=== PATIENT | female | born 1975 | race Caucasian/White ===

== ENCOUNTER 2016-05-09 11:37 | Emergency (ER) | payer BC, OTHER ==
[2016-05-09 11:46] VITALS: BP 117/67
--- NOTE | 2016-05-09 13:55 | UC ---
Respiratory Complaint HPI - HPI Summary HPI Summary: Symptoms start about 5 days ago with feeling like she can't breath well. She has a chest tightness with deep inspiration with dry cough and feels flu like.yesterday she woke up with right neck pain that radiates down her right arm but no weakness in the arm or neck. . She has been taking Ibuprofen which does help. SHe was exposed to flu like illness at work. [ End ] - History of Current Complaint Chief Complaint: UCRespiratory Stated Complaint: SOB,CHEST TIGHTNESS,NECK & SHOULDER PAIN Time Seen by Provider: 05/09/16 13:41 Hx Obtained From: Patient Hx Last Menstrual Period: bleeds every day ?: No Onset/Duration: Gradual Onset Timing: Constant Severity Initially: Mild Severity Currently: Mild Character: Cough: Nonproductive Aggravating Factors: Nothing Alleviating Factors: OTC Meds Associated Signs And Symptoms: Positive: Chills, URI, Nasal Congestion, Sinus Discomfort. Negative: Dyspnea, Fever, Pleuritic Chest Pain, Wheezing, Edema, Hoarseness - Risk Factors Pulmonary Embolism Risk Factors: Negative Cardiac Risk Factors: Negative - Allergies/Home Medications Allergies/Adverse Reactions: Allergies Allergy/AdvReac Type Severity Reaction Status Date / Time No Known Allergies Allergy Verified 05/09/16 11:46 Home Medications: Home Medications Ibuprofen TAB* [Motrin TAB* 600 MG] 600 mg PO Q6H PRN 05/09/16 [History Confirmed 05/09/16] PMH/Surg Hx/FS Hx/Imm Hx Previously Healthy: Yes Endocrine History Of: Denies: Diabetes Cardiovascular History Of: Denies: Cardiac Disorders Respiratory History Of: Denies: COPD GI/ History Of: Denies: Gastroesophageal Reflux Neurological History Of: Denies: TIA Psychological History Of: Denies: Anxiety Cancer History Of: Denies: Lung Cancer - Surgical History Surgical History: None Surgery Procedure, Year, and Place: To have Total Hysterectomy for abnormal vaginal bleeding. Had EKG and pre op labs in the past 2 weeks. - Family History Known Family History: Positive: None - Social History Occupation: Employed Full-time Lives: With Family Alcohol Use: OCC Substance Use Type: None Smoking Status (MU): Light Every Day Tobacco Smoker - Immunization History Most Recent Tetanus Shot: 2013 Review of Systems Constitutional: Chills, Fatigue Skin: Negative Eyes: Negative ENT: Negative, Sore Throat, Nasal Discharge Respiratory: Cough Cardiovascular: Negative Gastrointestinal: Negative Genitourinary: Negative Motor: Negative Neurovascular: Negative Musculoskeletal: Negative, Myalgia Neurological: Negative Psychological: Negative All Other Systems Reviewed And Are Negative: Yes Physical Exam Triage Information Reviewed: Yes Appearance: Well-Appearing, No Pain Distress, Well-Nourished Vital Signs: Initial Vital Signs Temp 99.3 F 05/09/16 11:43 Pulse 88 05/09/16 11:43 Resp 16 05/09/16 11:43 BP 117/67 05/09/16 11:43 Pulse Ox 99 05/09/16 11:43 Vital Signs Reviewed: Yes Eye Exam: Normal ENT Exam: Normal Dental Exam: Normal Neck exam: Normal Neck: Positive: Supple, Nontender, No Lymphadenopathy Respiratory Exam: Normal Respiratory: Positive: Chest non-tender, Lungs clear, Normal breath sounds, No respiratory distress Cardiovascular Exam: Normal Cardiovascular: Positive: RRR, No Murmur, Pulses Normal Abdominal Exam: Normal Musculoskeletal Exam: Normal Musculoskeletal: Positive: Strength Intact, ROM Intact - Right UE FROM and strength 5/5 . Cap refill < 3 sec., Other: - left sternocleidomastoid muscle tenderness to palpation and some miminal discomfort with lateral movement. Neurological Exam: Normal Psychological Exam: Normal Skin Exam: Normal UC Diagnostic Evaluation - Laboratory O2 Sat by Pulse Oximetry: 99 Respiratory Course/Dx - Course Course Of Treatment: After discussion she is aware she it outside of the window to treat flu as her initial symptoms started 5 days ago. At this time treat consdervatively with OTC meds. Given instruction for neck exercises as she has muscle strain likely from sleeping incorrectly. SHe is aware and agreeable to plan and will return to office if she is not improved. - Differential Dx/Diagnosis Differential Diagnosis/HQI/PQRI: Asthma, Bronchitis, Lower Resp Infection Provider Diagnoses: URI Discharge - Discharge Plan Condition: Good Disposition: HOME Patient Education Materials: Upper Respiratory Infection (ED)
== END 2016-05-09 14:01 | disposition home or self-care (01) ==
LOC: UCCORT 11:37
DX: J06.9 Acute upper respiratory infection, unspecified (principal); F17.210 Nicotine dependence, cigarettes, uncomplicated
CPT/HCPCS: 99211; G0463

== ENCOUNTER 2016-06-04 06:28 | Observation (INO) | payer BC, OTHER ==
[~2016-06-04 06:28] MED LIST: Buffered Lidocaine 1% SYRIN* 3 ML/SYR SYRINGE INTRADERM ONE; Dexamethasone IV* 4 MG/ML 1 ML (4 MG) IV SLOW PU ONE; Dexamethasone IV* 4 MG/ML 1 ML (4 MG) ONE; Famotidine IV* 10 MG/ML 2 ML (20 mg) IV ONE; Famotidine IV* 10 MG/ML 2 ML (20 mg) ONE; Scopolamine 1.5 mg* PATCH ONE; Scopolamine 1.5 mg* PATCH TRANSDERM ONE; ceFOXitin 2 GM IVPREMIX* 2 GM/50 ML BAG ONE
[2016-06-04 06:47] LABS: Manual Entry Verification ROB0080; UR Preg Internal Control QC Line Present
[2016-06-04] MEDS ORDERED: Bupivacaine 0.25% SDV* 30 ML ONE (07:30)
[2016-06-04] MEDS ORDERED: Ketorolac INJ* 30 MG/ML 1 ML VIAL ONE (07:31)
[2016-06-04] MEDS ORDERED: Rocuronium* 10 MG/ML VIAL ONE (07:31)
[2016-06-04] MEDS ORDERED: Propofol* 10 MG/ML 20 ML BTL IV PUSH ONE (07:31)
[2016-06-04] MEDS ORDERED: Lidocaine 2% PF * 5 ML VIAL ONE (07:31)
[2016-06-04] MEDS ORDERED: Midazolam* 1 MG/ML 2 ML VIAL (2 MG) ONE (07:32)
[2016-06-04] MEDS ORDERED: fentaNYL* 50 MCG/ML 5 ML VIAL (250 MCG VIAL) ONE (07:32)
[2016-06-04] MEDS ORDERED: PROCHLORPERAZINE INJ 5 MG/ML 2 ML VIAL IV PRN (07:40)
[2016-06-04 07:41] LABS: Hematocrit 42 % (35-47); Hemoglobin 14.1 g/dl (12.0-16.0); Mean Corpuscular HGB Conc 34 g/dl (31-36); Mean Corpuscular Hemoglobin 31 pg (27-31); Mean Corpuscular Volume 91 fL (80-97); Mean Platelet Volume 10 um3 (7.4-10.4); Red Cell Distribution Width 13 % (10.5-15); White Blood Count 6.6 10^3/ul (3.5-10.8)
[2016-06-04] MEDS ORDERED: EPHEDrine (Pressors)* 50 MG/ML VIAL ONE (08:20)
[2016-06-04] MEDS ORDERED: Phenylephrine IV* 40 MCG/ML 10 ML SYRINGE ONE (08:21)
[2016-06-04] MEDS ORDERED: Ondansetron INJ* 2 MG/ML VIAL ONE (08:40)
[2016-06-04] MEDS ORDERED: Phenylephrine INJ* 10 MG/ML 1 ML VIAL (10 MG) ONE (09:00)
[2016-06-04] MEDS ORDERED: fentaNYL* 50 MCG/ML 2 ML VIAL (100 MCG VIAL) ONE ×3 (09:36→10:41)
[2016-06-04] MEDS ORDERED: Neostigmine Methylsulfate* 2 MG/2 ML SYRINGE ONE (09:55)
[2016-06-04] MEDS ORDERED: Glycopyrrolate IV* 0.2 MG/ML 1 ML VIAL ONE (09:55)
[2016-06-04] MEDS ORDERED: oxyCODONE/Acetamin 5/325 MG* TAB PO PRN (10:02)
[2016-06-04] MEDS ORDERED: Simethicone CHEW TAB* 80 MG PO PRN (10:02)
[2016-06-04] MEDS ORDERED: Ondansetron INJ* 2 MG/ML VIAL IV PRN (10:06)
[2016-06-04] MEDS: fentaNYL* 50 MCG/ML 2 ML VIAL (100 MCG VIAL) IV PRN ×4 (10:19→11:30)
[2016-06-04] MEDS ORDERED: oxyCODONE/Acetamin 5/325 MG* TAB ONE (10:41)
[2016-06-04] MEDS: oxyCODONE/Acetamin 5/325 MG* TAB PO PRN ×4 (10:42→23:29)
[2016-06-04] MEDS ORDERED: Labetalol IV* 5 MG/ML 20 ML VIAL ONE (11:18)
--- NOTE | 2016-06-04 13:35 | OP ---
OPERATIVE REPORT: DATE OF OPERATION: 06/04/16 DATE OF : 77 SURGEON: Jose Vaughn MD RADIATION ONCOLOGY MANAGER: Dr. Walker. ANESTHESIOLOGIST: Dr. May. ANESTHESIA: General endotracheal. PRE-OP DIAGNOSES: Menorrhagia and dysmenorrhea. POST-OP DIAGNOSES: Menorrhagia and dysmenorrhea. OPERATIVE PROCEDURE: Laparoscopic supracervical hysterectomy and bilateral salpingectomy. INDICATIONS: This patient is a 41-year-old 3 para 3, who had been followed in the office with persistent menorrhagia and dysmenorrhea. The patient had used hormonal treatments as well as a Mirena IUD without significant improvement. On ultrasound, her uterus was found to be only mildly enlarged but without any significant abnormalities. After discussing her options, she desired to proceed with a hysterectomy. We discussed her options at length and she was counseled and consented for a laparoscopic supracervical hysterectomy and bilateral salpingectomy. ESTIMATED BLOOD LOSS: 25 cc. URINE OUTPUT: 550 cc. IV FLUIDS: 2600 cc lactated Ringer's. MATERIALS TO LAB: Uterus and bilateral fallopian tubes without cervix. FINDINGS: Normal-appearing pelvis. Uterus mildly enlarged and very soft and boggy consistent with likely adenomyosis. It also had an appearance of inflammation, but there were no adhesions or lesions seen. Both ovaries and fallopian tubes appeared normal. COMPLICATIONS: None. DESCRIPTION OF PROCEDURE: The risks, benefits, and alternatives were described to the patient and informed consent was obtained. The patient was taken to the operating room with IV running where general anesthesia was induced and found to be adequate. The patient was prepped and draped in the normal sterile fashion in the low lithotomy position in [facility]. A time-out was performed. A Bah catheter was placed. A bivalved speculum was placed in the vagina and a single-tooth tenaculum was placed on the anterior cervix. A uterine manipulator was then placed through the cervix and kept in place using an inflated balloon. The tenaculum was then removed and the speculum was also removed. Attention was then turned to the abdomen and gloves were changed. 0.25% Marcaine was injected into the umbilicus and about 3 cm below it in the midline. Approximately, 3- to 3.5-cm incision was then made from the lower umbilicus inferiorly in the midline. The fascia was then grasped with a Domingo clamp and the fascia was incised using the scalpel. An approximately 4-cm fascial incision was created in the midline. The peritoneal cavity was entered without difficulty bluntly. A GelPOINT mini was then prepared. The inner ring of the Shaun retractor was placed into the peritoneal cavity and on palpation, it was free from any bowel or omentum. This was tightened down against the skin and the GelPort was placed with three 5-mm trocars already inserted. The patient was then placed in the Trendelenburg position and the abdomen was insufflated with carbon dioxide gas to a maximum pressure of 15 mmHg. The pelvis was carefully inspected with the findings noted above. Using the manipulator, the uterus was lifted and deviated to the patient's left. The distal fallopian tube was lifted and using a LigaSure, the mesosalpinx was coagulated and transected along the entire length of the fallopian tube. The utero-ovarian ligament was then also coagulated and transected in a similar fashion. The round ligament was then grasped with the LigaSure, coagulated, and transected about 3 cm from the uterus. The anterior broad ligament was then opened and a bladder flap was created extending all the way across the lower uterus. The bladder was easily identified and kept well away from the incision. The posterior broad ligament was opened as well and the lateral uterine blood vessels were skeletonized with blunt dissection. The LigaSure was then used to coagulate several sites of the ascending branches of the uterine vessels. The attention was then turned to the patient's left uterus and all of these procedures were repeated in the same order and again with excellent hemostasis. At that time, the uterus was becoming much softer and also noted to be turning more of a purplish color consistent with lack of blood flow. A SupraLoop was then prepared and placed through one of the GelPOINT ports. The loop was able to be successfully placed completely around the uterus and then tightened at the mid to upper cervix. Several minutes were taken to carefully inspect the loop all the way around the entire cervix ensuring that it was free from any surrouding organs including the posterior rectum. Once all the structures had been inspected, the uterine manipulator was removed. A grasper was used to elevate the fundus of the uterus. Once the loop was again noted to be well away from the bowel, this was activated using pure-cut at a power of 100. Over the next several seconds, the SupraLoop successfully was able to amputate the cervix from the body of the uterus. There did not appear to be any injuries to surrounding structures. In addition , there was minimal bleeding at the cervical stump. The uterus was placed in the pelvis. The GelPort was removed and the gas quickly escaped. A collection bag was then placed through the abdominal opening and left in place, when the GelPort was returned. The abdomen was reinsufflated and the uterus was placed into the bag. The GelPort was again removed and the bag was brought up through the incision with the uterus in place. The uterus was then morcellated using a 10-blade scalpel as well as heavy Woodson scissors. This was removed in a few long segments with care being taken to avoid damaging the collection bag. Once the entire uterus had been removed, the bag was also removed and the GelPort was replaced. The abdomen was reinsufflated. The endocervical canal was then cauterized using an Endoshear with monopolar energy at a power of 40. On careful inspection, there was still no visible evidence of bleeding. The small amount of blood that was present was irrigated and suctioned. At that time, all of the operative site was hemostatic and the procedure was completed. The GelPort and Shaun retractor were removed. The fascia was then identified and reapproximated using 0 Polysorb in a running stitch. The skin was then closed with 4-0 Monocryl in a subcuticular stitch and the entire incision was covered with DermaFlex skin adhesive. The patient was then returned to the supine position and allowed to awaken. The patient tolerated the procedure well. Sponge, lap, and needle counts were correct x2. [id number]/[facility] #: [id number] [facility]
[2016-06-04] MEDS ORDERED: Morphine INJ* 4 MG/ML 1 ML SYRINGE ONE (14:00)
[2016-06-04] MEDS: Ketorolac INJ* 30 MG/ML 1 ML VIAL IV PUSH PRN (15:47)
[2016-06-04] MEDS: Morphine INJ* 4 MG/ML 1 ML SYRINGE IV PRN ×2 (16:20→19:49)
[2016-06-04] MEDS ORDERED: Topiramate TAB(*) 100 MG PO SCH (21:00)
[2016-06-05] MEDS: Ketorolac INJ* 30 MG/ML 1 ML VIAL IV PUSH PRN (03:35)
[2016-06-05] MEDS: Morphine INJ* 4 MG/ML 1 ML SYRINGE IV PRN (03:37)
[2016-06-05 06:21] LABS: Hematocrit 35 % (35-47); Mean Corpuscular HGB Conc 34 g/dl (31-36); Mean Corpuscular Hemoglobin 31 pg (27-31); Mean Corpuscular Volume 92 fL (80-97); Mean Platelet Volume 9 um3 (7.4-10.4); Red Blood Count 3.83 10^6/ul (4.0-5.4); Red Cell Distribution Width 14 % (10.5-15); White Blood Count 9.1 10^3/ul (3.5-10.8)
[2016-06-05] MEDS: oxyCODONE/Acetamin 5/325 MG* TAB PO PRN ×2 (07:25→11:23)
[2016-06-05 07:49] VITALS: BP 94/57
--- NOTE | 2016-06-05 13:12 | DS ---
DISCHARGE SUMMARY: DATE OF ADMISSION: 06/04/16 DATE OF DISCHARGE: 06/05/16 HOSPITAL COURSE: This patient is a 41-year-old 3, para 3, admitted yesterday for her scheduled surgery. She underwent an uncomplicated laparoscopic supracervical hysterectomy and bilateral salpingectomy for persistent menorrhagia and dysmenorrhea. Surgical findings were notable for a moderately enlarged and soft uterus consistent with likely adenomyosis. Estimated blood loss was 25 cc. Procedure was done through a single site at the umbilicus. The patient's postoperative course was unremarkable. She received a small amount of additional pain medication for breakthrough pain on the afternoon of surgery, but did well after that. On postoperative day 1, the patient was ambulating, tolerating a regular diet, voiding spontaneously, and having good pain control with her oral pain medications. She was passing flatus and did not have any nausea. She was discharged to home in good condition on postoperative day 1. DISCHARGE PHYSICAL EXAMINATION: Vital Signs: Temperature 98.4, pulse 84, and blood pressure 94/57. General: No acute distress. Ambulating in hallway just before examination. Abdomen: Soft. Mild tenderness to palpation primarily around the umbilical incision. Incision appears clean, dry, and intact with glue in place. Extremities: No significant edema or cords palpated. LABORATORY DATA: Preoperative hematocrit 42 and postoperative hematocrit 35. DISCHARGE INSTRUCTIONS: The patient was provided with printed discharge instructions. She should be returning to the office in 1 week for an incision check and in 3 to 4 weeks for postoperative examination. Precautions were all discussed with her. DISCHARGE DIAGNOSES: Menorrhagia and dysmenorrhea, status post uncomplicated laparoscopic supracervical hysterectomy and bilateral salpingectomy. DISCHARGE MEDICATIONS: For discharge medications, please see the medication reconciliation form. [id number]/[facility] #: [id number] [facility]
[2016-06-07] MEDS ORDERED: Scopolomine PATCH Remove* 1 NOTE MISC PATCH OFF ONE (06:00)
== END 2016-06-05 11:40 | disposition home or self-care (01) ==
LOC: OR 06:28 → SSU 11:50
PROVIDERS: ADMIT Obstetrics & Gynecology; ATTEND Obstetrics & Gynecology
PROC: 0UT74ZZ Resection of Bilateral Fallopian Tubes, Percutaneous Endoscopic Approach (ICD-10-PCS; 2016-06-04)
PROC: 0UT94ZZ Resection of Uterus, Percutaneous Endoscopic Approach (ICD-10-PCS; principal; 2016-06-04 07:45)
DX: N92.0 Excessive and frequent menstruation with regular cycle (principal); N94.6 Dysmenorrhea, unspecified; G43.109 Migraine with aura, not intractable, without status migrainosus
CPT/HCPCS: 36415; 81025; 84443; 85025; 85027; 86850; 86900; 86901; 88307; 96374; 96375; 96376; A9270-GY; G0378; J0694; J1100; J1885; J2250; J2270; J2405; J2704; J3010

== ENCOUNTER 2016-07-26 15:50 | Observation (INO) | payer BC, OTHER ==
[2016-07-26 17:20] LABS: Hematocrit 41 % (35-47); Hemoglobin 13.8 g/dl (12.0-16.0); Mean Corpuscular HGB Conc 34 g/dl (31-36); Mean Corpuscular Hemoglobin 30 pg (27-31); Mean Corpuscular Volume 90 fL (80-97); Mean Platelet Volume 9 um3 (7.4-10.4); Red Blood Count 4.58 10^6/ul (4.0-5.4); Red Cell Distribution Width 14 % (10.5-15); White Blood Count 7.9 10^3/ul (3.5-10.8)
[2016-07-26 17:33] LABS: Albumin 4.4 g/dL (3.2-5.2); BUN/Creatinine Ratio 16.3 (8-20); Calcium 9.4 mg/dL (8.6-10.3); EGFR African American 102.2 (>60); EGFR Non-African American 79.4 (>60); Globulin 2.4 g/dL (2-4); Potassium 3.7 mmol/L (3.5-5.0); Total Bilirubin 0.3 mg/dL (0.2-1.0); Total Protein 6.8 g/dL (6.4-8.9)
[2016-07-26] MEDS ORDERED: NS 0.9% 1000 ML* 2,000 ML IV ONE (18:32)
[2016-07-26] MEDS ORDERED: Ondansetron INJ* 2 MG/ML VIAL IV ONE ×2 (18:32→21:39)
[2016-07-26] MEDS ORDERED: Morphine INJ* 4 MG/ML 1 ML SYRINGE IV ONE (18:33)
[2016-07-26] MEDS ORDERED: Ketorolac INJ* 30 MG/ML 1 ML VIAL IV PUSH ONE (18:33)
--- NOTE | 2016-07-26 18:34 | ED ---
Abdominal Pain/Female - HPI Summary HPI Summary: 41F w/ PMH of migraines presents with abdominal pain and vomiting today. She denies any fever. She admits to diarrhea that just started. Her pain was periumblical and has moved to [facility]. She states she did pass out due to pain. She has never had this pain before. Her only previous surgeries were hysterectomy two months ago. She has chronic dysuria from hysterectomy. She denies any vaginal discharge, frequency, urgency, flank pain, constipation. Her last meal was at 12pm. She has never had this pain before. She states the pain is severe. - History of Current Complaint Chief Complaint: EDAbdPain Stated Complaint: SYNCOPE, VOMIT, ABD PAIN Time Seen by Provider: 07/26/16 18:25 Hx Last Menstrual Period: bleeds every day Pain Intensity: 9 Allergies/Adverse Reactions: Allergies Allergy/AdvReac Type Severity Reaction Status Date / Time No Known Allergies Allergy Verified 06/04/16 06:54 PMH/Surg Hx/FS Hx/Imm Hx Endocrine/Hematology History: Denies: Hx Diabetes Respiratory History: Denies: Hx Chronic Obstructive Pulmonary Disease (COPD), Hx Lung Cancer History: Reports: Hx Kidney Stones - in past x1 Sensory History: Reports: Hx Contacts or Glasses - GLASSES Denies: Hx Hearing Aid Opthamlomology History: Reports: Hx Contacts or Glasses - GLASSES Neurological History: Reports: Hx Headaches, Hx Migraine Denies: Hx Transient Ischemic Attacks (TIA) Psychiatric History: Denies: Hx Anxiety - Surgical History Surgery Procedure, Year, and Place: To have Total Hysterectomy for abnormal vaginal bleeding. Had EKG and pre op labs in the past 2 weeks. Infectious Disease History: No Infectious Disease History: Denies: Traveled Outside the [place] in Last 30 Days - Family History Known Family History: Positive: None, Hypertension - Social History Alcohol Use: Occasionally Substance Use Type: Reports: None Smoking Status (MU): Former Smoker Review of Systems Negative: Fever Negative: Chest Pain Negative: Shortness Of Breath Positive: Abdominal Pain, Vomiting, Nausea. Negative: Diarrhea All Other Systems Reviewed And Are Negative: Yes Physical Exam Triage Information Reviewed: Yes Vital Signs On Initial Exam: Initial Vitals Temp Pulse Resp BP Pulse Ox 98.7 F 94 17 131/81 98 07/26/16 16:03 07/26/16 16:03 07/26/16 16:03 07/26/16 16:03 07/26/16 16:03 Vital Signs Reviewed: Yes Appearance: Positive: Well-Appearing Skin: Positive: Warm, Dry Head/Face: Positive: Normal Head/Face Inspection Eyes: Positive: Normal, Conjunctiva Clear ENT: Positive: Normal ENT inspection, Pharynx normal, TMs normal Respiratory/Lung Sounds: Positive: Clear to Auscultation, Breath Sounds Present Cardiovascular: Positive: Normal, RRR Abdomen Description: Positive: Soft, Other: - tenderness greatest in RLQ with diffuse tenderness, pos rovsings Bowel Sounds: Positive: Present - [place] Coma Scale Coma Scale Total: 15 Diagnostics - Vital Signs Vital Signs Temp Pulse Resp BP Pulse Ox 07/26/16 17:35 97.8 F 84 17 132/65 100 07/26/16 16:03 98.7 F 94 17 131/81 98 - Laboratory Lab Results: Lab Results 07/26/16 07/26/16 07/26/16 Range/Units 16:16 16:16 16:16 WBC 7.9 (3.5-10.8) 10^3/ul RBC 4.58 (4.0-5.4) 10^6/ul Hgb 13.8 (12.0-16.0) g/dl Hct 41 (35-47) % MCV 90 (80-97) fL MCH 30 (27-31) pg MCHC 34 (31-36) g/dl RDW 14 (10.5-15) % Plt Count 138 L (150-450) 10^3/ul MPV 9 (7.4-10.4) um3 Neut % (Auto) 61.6 (38-83) % Lymph % (Auto) 29.1 (25-47) % Meeker % (Auto) 6.9 (1-9) % Eos % (Auto) 1.2 (0-6) % Baso % (Auto) 1.2 (0-2) % Absolute Neuts (auto) 4.9 (1.5-7.7) 10^3/ul Absolute Lymphs (auto) 2.3 (1.0-4.8) 10^3/ul Absolute Monos (auto) 0.5 (0-0.8) 10^3/ul Absolute Eos (auto) 0.1 (0-0.6) 10^3/ul Absolute Basos (auto) 0.1 (0-0.2) 10^3/ul Absolute Nucleated RBC 0 10^3/ul Nucleated RBC % 0.1 Sodium 136 (133-145) mmol/L Potassium 3.7 (3.5-5.0) mmol/L Chloride 106 (101-111) mmol/L Carbon Dioxide 21 L (22-32) mmol/L Anion Gap 9 (2-11) mmol/L BUN 13 (6-24) mg/dL Creatinine 0.80 (0.51-0.95) mg/dL Est GFR ( Amer) 102.2 (>60) Est GFR (Non-Af Amer) 79.4 (>60) BUN/Creatinine Ratio 16.3 (8-20) Glucose 103 H (70-100) mg/dL Lactic Acid 1.7 (0.5-2.0) mmol/L Calcium 9.4 (8.6-10.3) mg/dL Total Bilirubin 0.30 (0.2-1.0) mg/dL AST 46 H (13-39) U/L ALT 80 H (7-52) U/L Alkaline Phosphatase 48 (34-104) U/L Total Protein 6.8 (6.4-8.9) g/dL Albumin 4.4 (3.2-5.2) g/dL Globulin 2.4 (2-4) g/dL Albumin/Globulin Ratio 1.8 (1-3) Result Diagrams: 07/26/16 16:16 07/26/16 16:16 Lab Statement: Any lab studies that have been ordered have been reviewed, and results considered in the medical decision making process. - CT abd CT Interpretation: Positive (See Comments) - IMPRESSION: 1. CT FINDINGS OF ACUTE APPENDICITIS. 2. RIGHT ADNEXAL CYSTS. SUGGEST FOLLOW-UP ULTRASONOGRAPHY WHEN CLINICALLY FEASIBLE. CT Interpretation Completed By: Radiologist - EKG No standard instances Cardiac Rate: NL EKG Rhythm: Sinus Rhythm ST Segment: Normal Re-Evaluation - Re-Evaluation First Eval Re-Evaluation Time: 22:08 Change: Unchanged Comment: pain was better but has worsened again Second Eval Re-Evaluation Time: 23:42 Change: Unchanged Comment: says has had ovarian cysts in the past and this does not feel like one. Abdominal Pain Fem Course/Dx - Course Course Of Treatment: 41F presents with RLQ and vomiting for a day. did pass out after vomited. states pain is severe and is making nausous. denies any fever. has history of ovarian cyst but states pain is different. had hysterectomy 2 months ago. on exam diffusely tender but greatest in RLQ and pos rovsings. no wbc or CRP. u/a containment. CT shows appendicitis and R ovarian cyst. spoke with dr barton who will admit and will see how symptoms are in morning to see if will do to OR or not. - Diagnoses Differential Diagnosis: Positive: Appendicitis, Ovarian Cyst, Urinary Tract Infection Provider Diagnoses: Abdominal pain - Provider Notifications Discussed Care Of Patient With: dr barton Time Discussed With Above Provider: 22:05 - will see in ED to admit Discharge - Discharge Plan Condition: Stable Disposition: ADMITTED TO [facility]
[2016-07-26] MEDS ORDERED: Iohexol 300* (CONTRAST) 10 ML SDV IV ONE (18:40)
[2016-07-26 18:52] LABS: C Reactive Protein 2.2 mg/L (< 5.00)
[2016-07-26 19:11] LABS: Urine Bacteria Absent (Absent); Urine Bilirubin Negative (Negative); Urine Glucose Negative (Negative); Urine Nitrite Negative (Negative)
[2016-07-26] MEDS ORDERED: HYDROmorphone* 1 MG/ML 1 ML SYR IV SLOW PU ONE (21:39)
--- NOTE | 2016-07-26 21:48 | RAD ---
INDICATION: Right lower quadrant pain COMPARISON: CT January 09, 2011 TECHNIQUE: Axial source images were obtained from the hemidiaphragms to the symphysis pubis following administration of oral and intravenous contrast. 93 mL Omnipaque 300 was utilized. Coronal and sagittal reconstructed images were acquired. Lung bases: The lung bases are clear. Liver: The liver is mildly enlarged with findings of hepatic steatosis. There are no masses. There is no ductal dilatation. Gallbladder: There are no calcified gallstones. There is no evidence of wall thickening or pericholecystic fluid. Spleen: The spleen is normal in size. There are no masses. Pancreas: There is no focal pancreatic mass or ductal dilatation. Adrenal glands: There is no evidence of adrenal mass. Kidneys: The kidneys are normal in size and position. There are prompt nephrograms and there is prompt excretion bilaterally. There are no renal parenchymal masses. There is no evidence of nephrolithiasis. Adenopathy: There is no evidence of adenopathy by size criteria. Fluid collections: There are no free or localized fluid collections. Vessels:There are no significant atherosclerotic changes involving the aorta. There is no focal aneurysm. The iliac vessels are normal in caliber. The IVC appears normal. GI tract: The stomach and small bowel appear normal. The appendix is dilated and fluid-filled. There is mild periappendiceal inflammatory change. There are multiple appendicoliths. CT findings are compatible with acute appendicitis. The remainder the colon is unremarkable. There is no obstruction or free intraperitoneal air. Pelvic organs: There is hysterectomy. The left adnexa is normal. Midline are slightly to the right of midline is a 4.4 cm cystic structure and contiguous with this is a smaller 2.3 cm cystic structure. These are likely ovarian cysts. The smaller of the 2 cysts may be involuting. These could be evaluated with nonemergent ultrasonography given the CT findings of acute appendicitis. Bladder: There are no bladder masses. There is a tiny urachal remnant. Abdominal and pelvic soft tissues: The extraperitoneal abdominal and pelvic soft tissues appear normal.. Osseous structures: There are no acute osseous findings. Other: None IMPRESSION: 1. CT FINDINGS OF ACUTE APPENDICITIS. 2. RIGHT ADNEXAL CYSTS. SUGGEST FOLLOW-UP ULTRASONOGRAPHY WHEN CLINICALLY FEASIBLE.
[2016-07-26] MEDS: NS 0.9% 1000 ML* 1,000 ML IV SCH (23:51)
[2016-07-27] MEDS: Morphine INJ* 2 MG/ML 1 ML SYRINGE IV PRN ×3 (00:06→19:41)
[2016-07-27] MEDS: Acetaminophen TAB* 325 MG PO PRN (00:07)
--- NOTE | 2016-07-27 00:30 | HP ---
CC: [facility]; Dr. Jose Vaughn, COMMUNITY HEALTH DIRECTOR * HISTORY AND PHYSICAL ADMISSION NOTE: DATE OF ADMISSION: 07/26/16 REASON FOR ADMISSION: Abdominal pain mainly in the right lower abdomen. HISTORY OF PRESENT ILLNESS: Mr. Randell Hendricks is a 41-year-old woman, who lives in the 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 She developed a sudden sharp onset of right lower quadrant abdominal discomfort. This was quite severe and recurred and she had developed what she described as some weakness and fell to the ground. This was followed by some nausea with vomiting and subsequent recovery. She developed some generalized abdominal discomfort and several loose bowel movements. The pain became quite severe throughout her abdomen and presented to the emergency room. At that time, she was having more right-sided abdominal pain in the left. She was noted to be afebrile with a heart rate of approximately 90 with a normal blood pressure. Laboratory workup included a white blood cell count of 7.9 with a platelet count of 138,000, no shift. Electrolytes within normal limits with a lactic acid of 1.7. She had a carbon dioxide of 21. AST and ALT of 46 and 80. Urinalysis showed 1+ white cell. She has a significant recent surgical history and has undergone a single- incision laparoscopic supracervical hysterectomy with bilateral tube removal [place] Dr. Jose [place] [facility] [place] She had been doing well, is back to work. She did call Dr. Jose Vaughn today and was complaining of some periumbilical discomfort and was instructed to come to the emergency room. PAST MEDICAL HISTORY: Migraine headaches. PAST SURGICAL HISTORY: 1. Kidney stone removal. 2. Supracervical hysterectomy. MEDICATIONS: Include: 1. Topamax 200 mg p.o. q.h.s. 2. Ibuprofen p.r.n. 3. Benadryl p.r.n. ALLERGIES: She has no known drug allergies. SOCIAL HISTORY: She is , has 3 children. Works as a manager cafe at a [employer]. REVIEW OF SYSTEMS: Otherwise unremarkable. : She has had no urgency or hematuria. GI: She has had no abdominal pain until today, done well with surgery. PHYSICAL EXAMINATION GENERAL: She appears to be somewhat uncomfortable. VITAL SIGNS: She is afebrile, pulse 90, blood pressure 130/66. HEENT: Her sclerae are anicteric. Oral mucosa is moist. States her trachea is midline. LUNGS: Clear to auscultation with normal respiratory effort. HEART: Regular rate and rhythm without murmurs, rubs, or gallops. ABDOMEN: Soft, slightly distended. She had bowel sounds that were hyperactive but not high pitched or tinkling. She has a well-healed incision just below the umbilicus without hematoma or hernia. She has some tenderness in the epigastric area and also in the right side of her abdomen without rebound, guarding, or peritoneal irritation. There is no organomegaly. PSYCHIATRIC: She is awake, alert, oriented x3. She has normal judgment and insight. DIAGNOSTIC STUDIES: She subsequently underwent a CT scan of the abdomen and pelvis with both oral and IV contrast. I did review the study. This shows a new finding of a right midline 4.4-cm cystic structure felt likely to be right ovarian cyst. There is a second smaller cyst contiguous with this. There was no free fluid. The appendix was dilated and appeared to be fluid filled. It appeared to have some mild periappendiceal inflammation with appendicolith towards its base. These findings were consistent with acute appendicitis. IMPRESSION: Right lower quadrant abdominal pain with probable acute appendicitis. Her history is not completely consistent with acute appendicitis and she has a normal white blood cell count and no fever but CT scan which is worrisome for appendicitis. Also, of note, is the new finding of the ovarian cyst. I discussed these with Dr. Vaughn, her aeronautical products sales engineer, who performed the surgery. These are new, although he does not feel that these are an acute finding causing discomfort certainly without any pelvic fluid to suggest rupture and these ovarian cysts they do not appear to be torsed. A transvaginal ultrasound is to be obtained this evening for further followup. PLAN: 1. The patient will be admitted to the surgical service. 2. We will keep her NPO and start her on IV fluids. 3. Follow her closely. We will await results of the transvaginal ultrasound to evaluate the ovaries. 4. We will plan laparoscopy with appendectomy either tonight or tomorrow depending on OR availability with planned appendectomy with possible intra- operative COMMUNITY HEALTH DIRECTOR consultation. 5. All the above is discussed with the patient and her who is present in the emergency room as well. Their questions were answered. [id number]/[facility] #: [id number] YOUSUF
[2016-07-27] MEDS ORDERED: Bupivacaine 0.25% EPI 200,000* 30 ML SDV ONE (01:11)
[2016-07-27] MEDS ORDERED: Sodium Citrate/Citric Acid* 15 ML UDC PO ONE (01:35)
[2016-07-27] MEDS ORDERED: Sodium Citrate/Citric Acid* 15 ML UDC ONE (01:47)
[2016-07-27] MEDS ORDERED: DiMENhydriNATE IV* 50 MG/ML VIAL IV PUSH PRN (01:51)
[2016-07-27] MEDS ORDERED: Propofol* 10 MG/ML 20 ML BTL IV PUSH ONE (01:56)
[2016-07-27] MEDS ORDERED: Lidocaine 2% PF * 5 ML VIAL ONE (01:56)
[2016-07-27] MEDS ORDERED: Rocuronium* 10 MG/ML VIAL ONE (01:57)
[2016-07-27] MEDS ORDERED: fentaNYL* 50 MCG/ML 2 ML VIAL (100 MCG VIAL) ONE ×2 (01:59→03:59)
--- NOTE | 2016-07-27 03:48 | SURGPN ---
Brief Operative Note - Surgery Procedures: Procedures OPERATIVE REPORT PRE-OP: Acute appendicitis POST-OP: Same, Right ovarian cyst PROCEDURE: Laparoscopic appendectomy Intraoperative consult with Dr. Vaughn for right ovarian cyst evaluation--please see his dictated note. SURGEON: MD Aaron ANESTHESIA: General with local with Dr. Coyle ASST: none IVF: 1 liter of crystalloid EBL: min SPECIMEN: Appendix DRAIN: none WOUND CLASS: 3 COMPLICATIONS: none TO PACU
[2016-07-27] MEDS: fentaNYL* 50 MCG/ML 2 ML VIAL (100 MCG VIAL) IV PRN ×2 (04:01→04:20)
[2016-07-27] MEDS ORDERED: Ketorolac INJ* 30 MG/ML 1 ML VIAL ONE (04:02)
[2016-07-27] MEDS: Ketorolac INJ* 30 MG/ML 1 ML VIAL IV PUSH PRN ×4 (04:02→22:23)
[2016-07-27] MEDS ORDERED: Ondansetron INJ* 2 MG/ML VIAL ONE (04:18)
[2016-07-27] MEDS: Ondansetron INJ* 2 MG/ML VIAL IV PRN ×2 (04:19→09:58)
[2016-07-27] MEDS: NS 0.9% 1000 ML* 1,000 ML IV SCH ×3 (05:03→19:40)
[2016-07-27 06:18] LABS: Hematocrit 36 % (35-47); Hemoglobin 12.1 g/dl (12.0-16.0); Mean Corpuscular HGB Conc 34 g/dl (31-36); Mean Corpuscular Hemoglobin 31 pg (27-31); Mean Corpuscular Volume 91 fL (80-97); Mean Platelet Volume 9 um3 (7.4-10.4); Red Blood Count 3.95 10^6/ul (4.0-5.4); Red Cell Distribution Width 13 % (10.5-15); White Blood Count 7.8 10^3/ul (3.5-10.8)
[2016-07-27] MEDS: oxyCODONE/Acetamin 5/325 MG* TAB PO PRN ×3 (07:26→16:20)
--- NOTE | 2016-07-27 07:40 | CONS ---
CONSULTATION REPORT: (intraoperative) DATE OF CONSULTATION: 07/27/16 BRIEF CONSULTATION: This patient is a 41-year-old woman who underwent an uncomplicated laparoscopic supracervical hysterectomy and bilateral salpingectomy about 6 to 7 weeks ago. The patient had an essentially unremarkable postoperative course and as of a few weeks ago was doing well. She returned to work and had advanced to normal activity. She called earlier yesterday with complaint of fairly sudden abdominal pain, which was primarily periumbilical. She reported this actually resulted in her passing out. She denied any fevers, chills, nausea or vomiting. She did admit that she had been overdoing it at work as she works at a [employer] company and had done some fairly heavy lifting. The plan initially was for her to take some pain medications and rest and see if it improved; however, later on in the day, the patient's pain significantly worsened. She presented to the emergency department as I had recommended if the pain did not improve. I was consulted by Dr. Walker who had been called by the emergency department when the patient's CT scan was notable for findings of apparent acute appendicitis. I was consulted because the patient's right ovary was noted to have 1 or 2 cysts, as large as about 4 cm. Since the patient was having significantly worsening pain, he decided to proceed with laparoscopic evaluation and likely appendectomy tonight. I was asked to consult intra-operatively on the appearance of the ovary. Dr. Walker did find clear signs of acute appendicitis. On inspection with good visualization, the right ovary appeared to have a normal appearing simple cyst. The ovary itself appeared to be very healthy with no evidence of torsion and was freely mobile. There did not appear to be any significant adhesions around the ovary. The left ovary appeared completely normal. Of note, there was a significant amount of omental adhesion to the periumbilical incision which had been made for the hysterectomy. I did recommend taking down these adhesions considering she had been complaining of some periumbilical pain so Dr. Walker did take these down with the Ligasure after completing the appendectomy. There did not appear to be any bowel involvement or herniation. No further recommendations from a OIL DIPPER standpoint. Thank you very much for this consultation. [id number]/[facility] #: [id number] YOU[place]F
--- NOTE | 2016-07-27 08:18 | RAD ---
Indication: Right lower quadrant pain. Real-time sonography of the pelvis was performed utilizing endovaginal technique. The patient is status post hysterectomy. The right ovary measures 4.7 x 4.6 x 4.5 cm with a cyst in the right ovary measuring 3.5 x 4.5 x 3.8 cm. Left ovary measures 3.0 x 1.9 x 2.6 cm. Doppler interrogation demonstrates flow in both ovaries. IMPRESSION: Patient is status post hysterectomy. Right ovarian cyst measuring 4.5 cm.
--- NOTE | 2016-07-27 14:53 | PN ---
Progress Note - Progress Note SOAP: Subjective: Patient seen initially at 0730 this morning and just now She is having quite a bit of incisional pain and also nausea-has had minimal oral intake. Voiding without difficulty. No SOB or CP Objective: Temp Pulse Resp BP Pulse Ox 98.0 F 79 16 115/60 100 07/27/16 11:10 07/27/16 11:10 07/27/16 14:05 07/27/16 11:10 07/27/16 11:10 Intake & Output 07/25/16 07/26/16 07/27/16 07/28/16 06:59 06:59 06:59 06:59 Intake Total 3221 958 Output Total 550 Balance 3221 408 Weight 145 lb Intake: IV Fluids 3221 958 LR 1100 NS (0.9%) 121 958 Oral 0 Output: Urine 550 PEX: Appears uncomfortable but in NAD-awake and alert Lungs are CTA Cor is RRR Abd is slightly distended. Bowel sounds are decreased throughout. Incisions are clean and dry without drainage. She has tenderness over the incisions. Extremities without edema Laboratory Last Values WBC 7.8 10^3/ul (3.5-10.8) 07/27/16 05:47 RBC 3.95 10^6/ul (4.0-5.4) L 07/27/16 05:47 Hgb 12.1 g/dl (12.0-16.0) 07/27/16 05:47 Hct 36 % (35-47) 07/27/16 05:47 MCV 91 fL (80-97) 07/27/16 05:47 MCH 31 pg (27-31) 07/27/16 05:47 MCHC 34 g/dl (31-36) 07/27/16 05:47 RDW 13 % (10.5-15) 07/27/16 05:47 Plt Count 101 10^3/ul (150-450) L 07/27/16 05:47 MPV 9 um3 (7.4-10.4) 07/27/16 05:47 Neut % (Auto) 79.0 % (38-83) 07/27/16 05:47 Lymph % (Auto) 11.2 % (25-47) L 07/27/16 05:47 Mcdonough % (Auto) 9.2 % (1-9) H 07/27/16 05:47 Eos % (Auto) 0.1 % (0-6) 07/27/16 05:47 Baso % (Auto) 0.5 % (0-2) 07/27/16 05:47 Absolute Neuts (auto) 6.1 10^3/ul (1.5-7.7) 07/27/16 05:47 Absolute Lymphs (auto) 0.9 10^3/ul (1.0-4.8) L 07/27/16 05:47 Absolute Monos (auto) 0.7 10^3/ul (0-0.8) 07/27/16 05:47 Absolute Eos (auto) 0 10^3/ul (0-0.6) 07/27/16 05:47 Absolute Basos (auto) 0 10^3/ul (0-0.2) 07/27/16 05:47 Absolute Nucleated RBC 0 10^3/ul 07/27/16 05:47 Nucleated RBC % 0 07/27/16 05:47 Sodium 136 mmol/L (133-145) 07/26/16 16:16 Potassium 3.7 mmol/L (3.5-5.0) 07/26/16 16:16 Chloride 106 mmol/L (101-111) 07/26/16 16:16 Carbon Dioxide 21 mmol/L (22-32) L 07/26/16 16:16 Anion Gap 9 mmol/L (2-11) 07/26/16 16:16 BUN 13 mg/dL (6-24) 07/26/16 16:16 Creatinine 0.80 mg/dL (0.51-0.95) 07/26/16 16:16 Est GFR ( Amer) 102.2 (>60) 07/26/16 16:16 Est GFR (Non-Af Amer) 79.4 (>60) 07/26/16 16:16 BUN/Creatinine Ratio 16.3 (8-20) 07/26/16 16:16 Glucose 103 mg/dL (70-100) H 07/26/16 16:16 Lactic Acid 1.7 mmol/L (0.5-2.0) 07/26/16 16:16 Calcium 9.4 mg/dL (8.6-10.3) 07/26/16 16:16 Total Bilirubin 0.30 mg/dL (0.2-1.0) 07/26/16 16:16 AST 46 U/L (13-39) H 07/26/16 16:16 ALT 80 U/L (7-52) H 07/26/16 16:16 Alkaline Phosphatase 48 U/L (34-104) 07/26/16 16:16 C-Reactive Protein 2.20 mg/L (< 5.00) 07/26/16 16:16 Total Protein 6.8 g/dL (6.4-8.9) 07/26/16 16:16 Albumin 4.4 g/dL (3.2-5.2) 07/26/16 16:16 Globulin 2.4 g/dL (2-4) 07/26/16 16:16 Albumin/Globulin Ratio 1.8 (1-3) 07/26/16 16:16 Urine Color Yellow 07/26/16 19:00 Urine Appearance Turbid 07/26/16 19:00 Urine pH 8.0 (5-9) 07/26/16 19:00 Ur Specific [place] 1.016 (1.010-1.030) 07/26/16 19:00 Urine Protein Negative (Negative) 07/26/16 19:00 Urine Ketones Negative (Negative) 07/26/16 19:00 Urine Blood Negative (Negative) 07/26/16 19:00 Urine Nitrate Negative (Negative) 07/26/16 19:00 Urine Bilirubin Negative (Negative) 07/26/16 19:00 Urine Urobilinogen Negative (Negative) 07/26/16 19:00 Ur Leukocyte Esterase Trace (Negative) H 07/26/16 19:00 Urine WBC (Auto) 1+(6-10/hpf) (Absent) H 07/26/16 19:00 Urine RBC (Auto) Absent (Absent) 07/26/16 19:00 Ur Squamous Epith Cells Present (Absent) H 07/26/16 19:00 Amorphous Crystals Present (Absent) H 07/26/16 19:00 Urine Bacteria Absent (Absent) 07/26/16 19:00 Urine Glucose Negative (Negative) 07/26/16 19:00 Assessment: POD# 1 s/p laparoscopic appendectomy for acute appendicitis. Right ovarian cyst Nausea Plan: Analgesia and anti-emetic as needed. Increase activity Sub q heparin to start She is not ready for discharge yet today-will keep tonight as she has not taken adequate po Will recheck labs in AM Discussed with patient and her parents who were in the room today.
[2016-07-27] MEDS: Pantoprazole IV* 40 MG IV SCH (15:55)
[2016-07-27] MEDS: Heparin VIAL(*) 5000 UNITS/ML VIAL (FIVE THOUSAND) SUBCUT SCH ×2 (15:57→21:55)
[2016-07-27 17:08] LABS: Hematocrit 33 % (35-47); Mean Corpuscular HGB Conc 34 g/dl (31-36); Mean Corpuscular Hemoglobin 31 pg (27-31); Mean Corpuscular Volume 91 fL (80-97); Mean Platelet Volume 9 um3 (7.4-10.4); Red Blood Count 3.58 10^6/ul (4.0-5.4); Red Cell Distribution Width 14 % (10.5-15); White Blood Count 6.6 10^3/ul (3.5-10.8)
[2016-07-27 17:13] LABS: Comments Flag Yes
[2016-07-27 17:32] LABS: EGFR African American 111.8 (>60); EGFR Non-African American 86.9 (>60)
--- NOTE | 2016-07-27 22:53 | OP ---
CC: Dr. Jose Vaughn, GREY WASHER * DATE OF OPERATION: 07/27/16 - ROOM #331 DATE OF : 77 SURGEON: Juan Walker MD. ACCOUNTANT ASSISTANT: None. ANESTHESIOLOGIST: Dr. Avila. ANESTHESIA: General with local anesthetic. PRE-OP DIAGNOSES: 1. Acute appendicitis. 2. Right ovarian cyst. POST-OP DIAGNOSES: 1. Acute appendicitis. 2. Right ovarian cyst. OPERATIVE PROCEDURE: Laparoscopic appendectomy. ESTIMATED BLOOD LOSS: Minimal. WOUND CLASSIFICATION: 3. DRAINS: None. COMPLICATIONS: None. SPECIMEN: Appendix. FINDINGS: The patient had acute appendicitis with an appendix running along the lateral aspect of the lateral gutter. It had early grayish change to it. No evidence of perforation or abscess. Also noted was a 4 cm right ovarian cyst. Dr. Vaughn from Gynecology who has cared for the patient in the past was available and performed intraoperative evaluation through watching this on the screen. He did not feel that there was any indications for surgical intervention or drainage and nothing was done with regard with the cyst. BRIEF HISTORY: Ms. Hendricks is a 41-year-old female who developed a sudden onset of right-sided abdominal pain at work followed by profuse nausea and vomiting and pain. She was noted to have a normal white blood cell count and no fever. In the emergency room, a CT scan showed findings consistent with acute appendicitis with a dilated appendix with some periappendiceal stranding. Also noted was a right ovarian cyst, which was apparently new. She 2 months had undergone a laparoscopic supracervical hysterectomy by Dr. Vaughn. After evaluating her CAT scan in terms of the cyst as well as the appendix, she was to be admitted. Her pain worsened over the next several hours, became quite uncomfortable and a decision was made to proceed to the operating room this evening rather than waiting for morning operating room time. The procedure was discussed with the patient. The risks including, but not limited to, bleeding, infection, intraabdominal abscess formation, injury to peritoneal and retroperitoneal structures, possibility of an open procedure, abscess formation and other indicated surgical procedures were discussed. In addition, the types of anesthesia, recovery time and hospital stay were also explained. DESCRIPTION OF PROCEDURE: Written and informed consent was obtained, the abdomen was marked with indelible ink, and preoperative antibiotics were administered. The patient was taken to the operating room and placed in the supine position. Sequential compression devices and a warming blanket were applied. General anesthesia was administered. The abdomen was prepped and draped in the usual sterile fashion. Time-out verification was completed. Marcaine 0.25% was infiltrated just above the umbilicus in the midline. A transverse incision was made and the midline fascia was divided and the peritoneal cavity was entered under direct vision. A 12 mm blunt port was inserted and the abdomen was insufflated to 15 mmHg. Under direct vision, a 5 mm port was placed in the left lower quadrant abdominal wall and a second 5 mm port was placed in the suprapubic position. There were few omental adhesions just at the umbilicus from the recent hysterectomy that was done laparoscopically. These were taken down with a LigaSure device. There is no bowel involved. I appreciated no incisional hernia at that site, which was below the umbilicus. There was some free fluid in the pelvis. There was a right ovarian cyst, which was fairly complex, and Dr. Vaughn from Gynecology was gracious enough to perform an intraoperative consult, did not feel that this was a pathologic or acute finding and did not feel that intervention was needed. Left ovary appeared to be essentially normal. Next, the appendix was identified. Its base was in the expected position, but it ran lateral and parallel to the ascending colon and was somewhat extraperitoneal. It was grayish in color without evidence of true full thickness necrosis, perforation or abscess formation. There was a small amount of fluid surrounding it. The cecum, right colon, and the terminal ileum appeared to be normal. Appendix was able to be grasped and I divided some of the lateral attachments laterally basically from distal to proximal. We brought this up into view by dividing the lateral attachments as well as the mesoappendix sequentially with the LigaSure device. Once we came down to the base, which appeared to be normal as well as the base of the cecum, I used a richardson load of the Endo SEAN 60 load stapler to divide the appendix at its base. This was then brought out through the umbilical incision with an Endo Catch bag. The staple line was intact without evidence of bleeding. I thoroughly irrigated the right lower quadrant as well as the pelvis and hemostasis was assured. All ports were removed under direct vision of the camera. There was no abdominal wall bleeding. The umbilical fascia was closed with interrupted 0 Polysorb suture. The skin incision was approximated with subcuticular 4-0 Polysorb suture. Steri- Strips were applied. The patient tolerated the procedure well and was taken to the recovery room in stable condition. [id number]/[facility] #: [id number] [facility]PITALMarina
[2016-07-28] MEDS: NS 0.9% 1000 ML* 1,000 ML IV SCH (02:29)
[2016-07-28] MEDS: Acetaminophen TAB* 325 MG PO PRN (02:32)
[2016-07-28] MEDS: Heparin VIAL(*) 5000 UNITS/ML VIAL (FIVE THOUSAND) SUBCUT SCH ×2 (05:52→14:13)
[2016-07-28] MEDS: Ketorolac INJ* 30 MG/ML 1 ML VIAL IV PUSH PRN (05:53)
[2016-07-28 06:06] LABS: Hematocrit 32 % (35-47); Hemoglobin 10.6 g/dl (12.0-16.0); Mean Corpuscular HGB Conc 33 g/dl (31-36); Mean Corpuscular Hemoglobin 31 pg (27-31); Mean Corpuscular Volume 93 fL (80-97); Mean Platelet Volume 10 um3 (7.4-10.4); Red Blood Count 3.46 10^6/ul (4.0-5.4); Red Cell Distribution Width 14 % (10.5-15)
[2016-07-28 06:11] LABS: Comments Flag Yes
[2016-07-28 06:12] LABS: Add Diff/Slide Review? Slide Review Added
[2016-07-28 06:29] LABS: BUN/Creatinine Ratio 14.7 (8-20); Calcium 7.8 mg/dL (8.6-10.3); EGFR African American 110.1 (>60); EGFR Non-African American 85.6 (>60); Potassium 3.5 mmol/L (3.5-5.0)
--- NOTE | 2016-07-28 08:51 | PN ---
Progress Note - Progress Note SOAP: Subjective: She feels much better-nausea resolved and her pain is better after receiving analgesia. Tolerated liquids, voiding OK Has passed some flatus Ambulating in the halls Objective: Temp Pulse Resp BP Pulse Ox 98.2 F 73 14 131/74 92 07/28/16 07:24 07/28/16 07:24 07/28/16 07:24 07/28/16 07:24 07/28/16 07:24 Intake & Output 07/26/16 07/27/16 07/28/16 07/29/16 06:59 06:59 06:59 06:59 Intake Total 3221 5040 Output Total 1400 Balance 3221 3640 Weight 145 lb Intake: IV Fluids 3221 3440 LR 1100 NS (0.9%) 121 2612 Oral 0 1600 Output: Urine 1400 Other: # Bowel Movements 0 PEX: Comfortable Lungs are clear Abd is soft and slightly distended. Bowel sounds are present throughout. Incisions are clean and dry. Extremities without edema. Laboratory Last Values WBC 5.0 10^3/ul (3.5-10.8) 07/28/16 04:51 RBC 3.46 10^6/ul (4.0-5.4) L 07/28/16 04:51 Hgb 10.6 g/dl (12.0-16.0) L 07/28/16 04:51 Hct 32 % (35-47) L 07/28/16 04:51 MCV 93 fL (80-97) 07/28/16 04:51 MCH 31 pg (27-31) 07/28/16 04:51 MCHC 33 g/dl (31-36) 07/28/16 04:51 RDW 14 % (10.5-15) 07/28/16 04:51 Plt Count 165 10^3/ul (150-450) 07/28/16 04:51 MPV 10 um3 (7.4-10.4) 07/28/16 04:51 Neut % (Auto) 48.2 % (38-83) 07/28/16 04:51 Lymph % (Auto) 41.1 % (25-47) 07/28/16 04:51 [place] % (Auto) 8.1 % (1-9) 07/28/16 04:51 Eos % (Auto) 1.8 % (0-6) 07/28/16 04:51 Baso % (Auto) 0.8 % (0-2) 07/28/16 04:51 Absolute Neuts (auto) 2.4 10^3/ul (1.5-7.7) 07/28/16 04:51 Absolute Lymphs (auto) 2.1 10^3/ul (1.0-4.8) 07/28/16 04:51 Absolute Monos (auto) 0.4 10^3/ul (0-0.8) 07/28/16 04:51 Absolute Eos (auto) 0.1 10^3/ul (0-0.6) 07/28/16 04:51 Absolute Basos (auto) 0 10^3/ul (0-0.2) 07/28/16 04:51 Absolute Nucleated RBC 0 10^3/ul 07/28/16 04:51 Nucleated RBC % 0 07/28/16 04:51 INR (Anticoag Therapy) 1.02 (0.89-1.11) 07/27/16 17:00 APTT 31.4 seconds (26.0-36.3) 07/27/16 17:00 Sodium 137 mmol/L (133-145) 07/28/16 04:51 Potassium 3.5 mmol/L (3.5-5.0) 07/28/16 04:51 Chloride 111 mmol/L (101-111) 07/28/16 04:51 Carbon Dioxide 22 mmol/L (22-32) 07/28/16 04:51 Anion Gap 4 mmol/L (2-11) 07/28/16 04:51 BUN 11 mg/dL (6-24) 07/28/16 04:51 Creatinine 0.75 mg/dL (0.51-0.95) 07/28/16 04:51 Est GFR ( Amer) 110.1 (>60) 07/28/16 04:51 Est GFR (Non-Af Amer) 85.6 (>60) 07/28/16 04:51 BUN/Creatinine Ratio 14.7 (8-20) 07/28/16 04:51 Glucose 87 mg/dL (70-100) 07/28/16 04:51 Lactic Acid 1.7 mmol/L (0.5-2.0) 07/26/16 16:16 Calcium 7.8 mg/dL (8.6-10.3) L 07/28/16 04:51 Total Bilirubin 0.30 mg/dL (0.2-1.0) 07/26/16 16:16 AST 46 U/L (13-39) H 07/26/16 16:16 ALT 80 U/L (7-52) H 07/26/16 16:16 Alkaline Phosphatase 48 U/L (34-104) 07/26/16 16:16 C-Reactive Protein 2.20 mg/L (< 5.00) 07/26/16 16:16 Total Protein 6.8 g/dL (6.4-8.9) 07/26/16 16:16 Albumin 4.4 g/dL (3.2-5.2) 07/26/16 16:16 Globulin 2.4 g/dL (2-4) 07/26/16 16:16 Albumin/Globulin Ratio 1.8 (1-3) 07/26/16 16:16 Urine Color Yellow 07/26/16 19:00 Urine Appearance Turbid 07/26/16 19:00 Urine pH 8.0 (5-9) 07/26/16 19:00 Ur Specific [place] 1.016 (1.010-1.030) 07/26/16 19:00 Urine Protein Negative (Negative) 07/26/16 19:00 Urine Ketones Negative (Negative) 07/26/16 19:00 Urine Blood Negative (Negative) 07/26/16 19:00 Urine Nitrate Negative (Negative) 07/26/16 19:00 Urine Bilirubin Negative (Negative) 07/26/16 19:00 Urine Urobilinogen Negative (Negative) 07/26/16 19:00 Ur Leukocyte Esterase Trace (Negative) H 07/26/16 19:00 Urine WBC (Auto) 1+(6-10/hpf) (Absent) H 07/26/16 19:00 Urine RBC (Auto) Absent (Absent) 07/26/16 19:00 Ur Squamous Epith Cells Present (Absent) H 07/26/16 19:00 Amorphous Crystals Present (Absent) H 07/26/16 19:00 Urine Bacteria Absent (Absent) 07/26/16 19:00 Urine Glucose Negative (Negative) 07/26/16 19:00 Assessment: POD# 2 s/p laparoscopic appendectomy for acute appendicitis Right ovarian cyst Ileus resolving Incisional pain improved Plan: Advance diet D/C IVF If tolerates diet plan d/c today.
[2016-07-28] MEDS: oxyCODONE/Acetamin 5/325 MG* TAB PO PRN (10:59)
[2016-07-28] MEDS ORDERED: Ibuprofen TAB* 600 MG PO PRN (13:04)
[2016-07-28 15:55] VITALS: BP 123/65
[2016-07-28] MEDS: Pantoprazole IV* 40 MG IV SCH (16:42)
== END 2016-07-28 16:05 | disposition home or self-care (01) ==
LOC: ED 15:50 → SSU 22:43
PROVIDERS: ADMIT Surgery; ATTEND Surgery
PROC: 0DTJ4ZZ Resection of Appendix, Percutaneous Endoscopic Approach (ICD-10-PCS; principal; 2016-07-26)
DX: K35.80 Unspecified acute appendicitis (principal); N83.201 Unspecified ovarian cyst, right side; R10.9 Unspecified abdominal pain; R11.2 Nausea with vomiting, unspecified; Z87.891 Personal history of nicotine dependence
CPT/HCPCS: 36415; 74177; 76830; 80048; 80053; 81003; 81015; 82565; 83605; 84520; 85025; 85610; 85730; 86140; 87086; 88304; 93005; 94760; 96374; 96375; 99283; A9270-GY; G0378; J1170; J1644; J1885; J2270; J2405; J2543; J2704; J3010; Q9967

== ENCOUNTER 2017-07-16 18:49 | Emergency (ER) | payer BC ==
[2017-07-16] MEDS ORDERED: Morphine INJ* 4 MG/ML 1 ML CARPUJECT IV ONE (19:39)
[2017-07-16] MEDS ORDERED: Ketorolac INJ* 30 MG/ML 1 ML VIAL IV ONE (19:39)
[2017-07-16] MEDS ORDERED: NS 0.9% 1000 ML* 1,000 ML IV ONE (19:39)
[2017-07-16] MEDS ORDERED: Metoclopramide IV* 5 MG/ML 2 ML VIAL IV SLOW PU ONE (19:42)
[2017-07-16] MEDS ORDERED: Morphine VIAL* 4 MG/ML VIAL (1 ml vial) IV ONE ×2 (19:48→20:04)
--- NOTE | 2017-07-16 20:13 | RAD ---
INDICATION: RIGHT flank pain. History of urolithiasis. COMPARISON: July 26, [address] TECHNIQUE: Multidetector CT images were obtained from the lung bases to the ischial tuberosities. Evaluation of the viscera is limited without IV contrast. Multiplanar reformation. REPORT: Unremarkable visualized inferior thorax. Decreased density of the liver consistent with fatty infiltration. Largely contracted gallbladder limiting assessment without gross abnormality. Negative for biliary dilatation. No CT abnormality of the pancreas or spleen. No CT abnormality of the upper GI or small bowel. Post appendectomy. A few colonic diverticula are noted. No evidence for acute diverticulitis. Trace free fluid in the cul-de-sac. Negative for free air or hernias. Normal adrenal glands. Unremarkable kidneys. Negative for urolithiasis or hydronephrosis. Unremarkable nondilated ureters. Largely decompressed urinary bladder limiting assessment without gross abnormality. Post hysterectomy. Unremarkable adnexal regions. Resolution of previous RIGHT ovarian cyst. Negative for lymphadenopathy. Normal diameter abdominal aorta and iliac arteries. Physiologic distention of the IVC. Multilevel mild lumbar sacral spine degenerative spondylosis. Negative for fracture or suspicious focal osseous lesion. IMPRESSION: 1. Negative for urolithiasis or hydronephrosis. 2. Post appendectomy. 3. Unremarkable adnexal regions. Resolution of previous RIGHT ovarian cyst. 4. No acute abdominal pelvic pathologic process evident.
[2017-07-16 20:15] LABS: ABS Basophils 0.1 10^3/ul (0-0.2); ABS Eosinophils 0.1 10^3/ul (0-0.6); ABS Lymphocytes 2.1 10^3/ul (1.0-4.8); ABS Monocytes 0.6 10^3/ul (0-0.8); ABS Neutrophils 4.3 10^3/ul (1.5-7.7); ABS Nucleated RBC 0 10^3/ul; Eosinophil % 1.5 % (0-6); Hematocrit 41 % (35-47); Hemoglobin 13.9 g/dl (12.0-16.0); Mean Corpuscular HGB Conc 34 g/dl (31-36); Mean Corpuscular Hemoglobin 32 pg (27-31); Mean Corpuscular Volume 94 fL (80-97); Nucleated Red Blood Cells % 0.1; Platelet Count 139 10^3/ul (150-450); Red Blood Count 4.37 10^6/ul (4.0-5.4); Red Cell Distribution Width 14 % (10.5-15); Urine Appearance Clear; Urine Blood Negative (Negative); Urine Color Yellow; Urine Ketones Trace (Negative); Urine Protein Negative (Negative); Urine Specific Gravity 1.031 (1.010-1.030); Urine Urobilinogen Negative (Negative); White Blood Count 7.2 10^3/ul (3.5-10.8)
[2017-07-16] MEDS ORDERED: predniSONE TAB* 20 MG PO ONE (20:33)
[2017-07-16 20:53] VITALS: BP 124/84
--- NOTE | 2017-07-17 03:01 | ED ---
Britney Coyle Rebecca, scribed for Sangeetha Danielle MD on 07/16/17 at 1936 . Back Pain - HPI Summary HPI Summary: Pt is a 42 y/o F who presents to ED c/o R flank pain. Sx began 2 days ago and gradually worsened since onset. Pain radiates into the right side of the groin and is currently severe, ranked 10/10. Sx aggravated by movement, alleviated by nothing. Additionally c/o nausea. Denies fever. PSHx hysterectomy and appy and PMHx kidney stones. - History of Current Complaint Chief Complaint: EDFlankPain Stated Complaint: LOWER BACK PAIN Time Seen by Provider: 07/16/17 19:30 Hx Obtained From: Patient Hx Last Menstrual Period: bleeds every day Onset/Duration: Lasting Days - 2 days, Still Present Onset/Duration: Still Present Back Pain Location: Is Discrete @ - R flank, Radiates To - R groin Severity Currently: Severe Pain Intensity: 10 Pain Scale Used: 0-10 Numeric Aggravating Symptom(s): Movement Alleviating Symptom(s): Nothing Associated Signs And Symptoms: Positive: Other - Nausea. Negative: Fever - Allergies/Home Medications Allergies/Adverse Reactions: Allergies Allergy/AdvReac Type Severity Reaction Status Date / Time No Known Allergies Allergy Verified 07/16/17 18:58 PMH/Surg Hx/FS Hx/Imm Hx Endocrine/Hematology History: Denies: Hx Diabetes Respiratory History: Denies: Hx Chronic Obstructive Pulmonary Disease (COPD), Hx Lung Cancer History: Reports: Hx Kidney Stones - in past x1 Sensory History: Reports: Hx Contacts or Glasses - GLASSES Denies: Hx Hearing Aid Opthamlomology History: Reports: Hx Contacts or Glasses - GLASSES Neurological History: Reports: Hx Headaches, Hx Migraine Denies: Hx Transient Ischemic Attacks (TIA) Psychiatric History: Denies: Hx Anxiety - Surgical History Surgery Procedure, Year, and Place: To have Total Hysterectomy for abnormal vaginal bleeding. Had EKG and pre op labs in the past 2 weeks. Infectious Disease History: No Infectious Disease History: Denies: Traveled Outside the [place] in Last 30 Days - Family History Known Family History: Positive: Hypertension - Social History Alcohol Use: Occasionally Substance Use Type: Reports: None Smoking Status (MU): Former Smoker Review of Systems Negative: Fever Positive: Nausea Positive: flank pain - Right All Other Systems Reviewed And Are Negative: Yes Physical Exam - Summary Physical Exam Summary: VITAL SIGNS: Reviewed. GENERAL: ~Patient is a well-developed and nourished female who is lying comfortable in the stretcher. Patient is not in any acute respiratory distress. HEAD AND FACE: No signs of trauma. No ecchymosis, hematomas or skull depressions. No sinus tenderness. EYES: PERRLA, EOMI x 2, No injected conjunctiva, no nystagmus. EARS: Hearing grossly intact. Ear canals and tympanic membranes are within normal limits. MOUTH: Oropharynx within normal limits. NECK: Supple, trachea is midline, no adenopathy, no JVD, no carotid bruit, no c- spine tenderness, neck with full ROM. CHEST: Symmetric, no tenderness at palpation LUNGS: Clear to auscultation bilaterally. No wheezing or crackles. CVS: Regular rate and rhythm, S1 and S2 present, no murmurs or gallops appreciated. ABDOMEN: Soft, RLQ tenderness. No signs of distention. No rebound no guarding, and no masses palpated. Bowel sounds are normal. EXTREMITIES: Positive straight leg raise on the right side at 60-70 degrees, pain with movement, FROM in all major joints, no edema, no cyanosis or clubbing. NEURO: Alert and oriented x 3. No acute neurological deficits. Speech is normal and follows commands. SKIN: Dry and warm Triage Information Reviewed: Yes Vital Signs On Initial Exam: Initial Vitals Temp Pulse Resp BP Pulse Ox 98.5 F 93 16 128/93 100 07/16/17 18:56 07/16/17 18:56 07/16/17 18:56 07/16/17 18:56 07/16/17 18:56 Vital Signs Reviewed: Yes Diagnostics - Vital Signs Vital Signs Temp Pulse Resp BP Pulse Ox 07/16/17 18:56 98.5 F 93 16 128/93 100 - Laboratory Result Diagrams: 07/16/17 20:03 07/16/17 20:03 Lab Statement: Any lab studies that have been ordered have been reviewed, and results considered in the medical decision making process. - CT CT Abd/Pel CT Interpretation Completed By: Radiologist - 1. Negative for urolithiasis or hydronephrosis. 2. Post appendectomy. 3. Unremarkable adnexal regions. Resolution of previous RIGHT ovarian cyst. 4. No acute abdominal pelvic pathologic process evident. ED physician reviewed this report. Re-Evaluation - Re-Evaluation First Eval Re-Evaluation Time: 20:33 Change: Improved Comment: The pt's symptoms have improved. Reviewed results and it seems that the pt is having right-sided sciatica. Back Pain Course/Dx - Course Assessment/Plan: Pt is a 42 y/o F who presents to ED c/o R flank pain with radiation to the R groin for 2 days, radually worsening, aggravated by movement. Additionally c/o nausea. Denies fever. PSHx hysterectomy and appy and PMHx kidney stones. CT Abd/Pel reveals no acute findings. Lab work and UA were done. In the ED course, pt received Toradol, Reglan, Morphine, Deltasone and fluids which improved symptoms. Pt will be discharged to home with Dx of right sided sciatica and Rx for motrin, deltasone and percocet. She understands and agrees. - Diagnoses Provider Diagnoses: Right sided sciatica Discharge - Sign-Out/Discharge Documenting (check all that apply): Discharge/Admit/Transfer - Discharge - Discharge Plan Condition: Stable Disposition: HOME Prescriptions: Ibuprofen TAB* [Motrin TAB* 800 MG] 800 mg PO Q6H PRN #30 tab PRN Reason: Pain oxyCODONE/Acetamin 5/325 MG* [Percocet 5/325 TAB*] 1 tab PO Q6H PRN #14 tab MDD 4 PRN Reason: Pain predniSONE TAB* [Deltasone 20 MG TAB*] 40 mg PO DAILY #10 tab Patient Education Materials: Sciatica (ED) Referrals: No Primary Care Phys,NOPCP [Primary Care Provider] - [facility] [place] [facility] REFERRAL [Outside] - 3 Days Additional Instructions: RETURN TO ED FOR ANY NEW OR WORSENING SYMPTOMS. The documentation as recorded by the Britney downs Rebecca accurately reflects the service I personally performed and the decisions made by me, Sangeetha Danielle MD.
== END 2017-07-16 20:52 | disposition home or self-care (01) ==
LOC: ED 18:49
DX: M54.31 Sciatica, right side (principal); Z90.710 Acquired absence of both cervix and uterus; Z87.442 Personal history of urinary calculi; Z87.891 Personal history of nicotine dependence
CPT/HCPCS: 36415; 74176; 80053; 81003; 83690; 83735; 85025; 86140; 96374; 96375; 99284; J1885; J2270; J2765; J7512

== ENCOUNTER 2017-07-24 13:50 | Emergency (ER) | payer BC ==
[2017-07-24 14:08] VITALS: BP 105/56
--- NOTE | 2017-07-24 14:42 | UC ---
Back Pain HPI - HPI Summary HPI Summary: C/O right low back pain, radiating into the right groin. Positive numbness on the upper inner right thigh. New onset urinary incontinence. - History of Current Complaint Chief Complaint: UCLowerExtremity Stated Complaint: RIGHT LEG PAIN Time Seen by Provider: 07/24/17 14:34 Hx Obtained From: Patient Hx Last Menstrual Period: bleeds every day ?: No Onset/Duration: Sudden Onset - lifting a slab of granite., Lasting Weeks - 1 Timing: Constant Severity Initially: Severe Severity Currently: Severe Pain Intensity: 9 Back Pain: Is Discrete @ - Right lower back, Radiates To - the right upper leg Character: Burning Aggravating Factor(s): Movement, Bending, Walking Alleviating Factor(s): Nothing Associated Signs And Symptoms: Positive: Numbness, Tingling, Bladder Incontinence. Negative: Fever, Bowel Incontinence Related History: Occupational Injury - Allergies/Home Medications Allergies/Adverse Reactions: Allergies Allergy/AdvReac Type Severity Reaction Status Date / Time No Known Allergies Allergy Verified 07/24/17 14:08 Home Medications: Home Medications Diclofenac Sodium/Misoprostol [Arthrotec 75 mg-200 Mcg Tab] 75 mg PO BID [History Confirmed 07/24/17] PMH/Surg Hx/FS Hx/Imm Hx Neurological History: Migraine - Surgical History Surgical History: Yes Surgery Procedure, Year, and Place: To have Total Hysterectomy for abnormal vaginal bleeding. Had EKG and pre op labs in the past 2 weeks. - Family History Known Family History: Positive: Hypertension, Diabetes - Social History Lives: With Family Alcohol Use: Occasionally Substance Use Type: None Smoking Status (MU): Former Smoker When Did the Patient Quit Smoking/Using Tobacco: 30 YEARS - Immunization History Most Recent Influenza Vaccination: Not indicated Most Recent Tetanus Shot: 2013 Most Recent Pneumonia Vaccination: Not indicated Review of Systems Musculoskeletal: Arthralgia Neurological: Paresthesia, Numbness Is Patient Immunocompromised?: No All Other Systems Reviewed And Are Negative: Yes Physical Exam Triage Information Reviewed: Yes Appearance: Well-Appearing, Well-Nourished, Pain Distress - Unable to sit. Very uncomfortable Vital Signs: Initial Vital Signs Temp 99.1 F 07/24/17 14:01 Pulse 111 07/24/17 14:01 Resp 18 07/24/17 14:01 BP 105/56 07/24/17 14:01 Pulse Ox 98 07/24/17 14:01 Vital Signs Reviewed: Yes Eyes: Positive: Conjunctiva Clear Neck exam: Normal Respiratory Exam: Normal Cardiovascular Exam: Normal Musculoskeletal: Positive: ROM Limited @ - Lumbar spine. Neurological: Positive: Other: - Decreased sensation with parathesia L2 dermatome. Psychological Exam: Normal Skin Exam: Normal Back Pain Course/Dx - Differential Dx/Diagnosis Differential Diagnosis/HQI/PQRI: Epidural Abscess, Herniated Disc, Septic Arthritis Provider Diagnoses: Lumbar radiculopathy. C/O Cauda Equina syndrome. - Physician Notifications Discussed Care With: Dr. Susana Li Time Discussed With Above Provider: 14:59 - Will send by private car to the ER. Instructed by Provider To: Transfer - by private car. To [facility] Discharge - Sign-Out/Discharge Documenting (check all that apply): Discharge/Admit/Transfer - Discharge Plan Condition: Guarded Disposition: TRANS HIGHER LVL OF CARE FAC Patient Education Materials: Lumbar Radiculopathy (ED) Referrals: Hien Gómez NP [Primary Care Provider] - Additional Instructions: Cauda equina syndrome is a surgical emergency. Go straight to the ER. - Billing Disposition and Condition Condition: GUARDED Disposition: Trans Higher Lvl of Care Fac
== END 2017-07-24 15:04 | disposition short-term general hospital (02) ==
LOC: UCCORT 13:50
DX: M54.16 Radiculopathy, lumbar region (principal)
CPT/HCPCS: 99212; G0463

== ENCOUNTER 2017-08-30 07:48 | Observation (INO) | payer BC ==
[~2017-08-30 07:48] MED LIST changes: +Buffered Lidocaine 0.9% SYRIN* 5 ML/SYR SYRINGE INTRADERM ONE; -Buffered Lidocaine 1% SYRIN* 3 ML/SYR SYRINGE INTRADERM ONE; -Dexamethasone IV* 4 MG/ML 1 ML (4 MG) ONE; -Famotidine IV* 10 MG/ML 2 ML (20 mg) ONE; -Scopolamine 1.5 mg* PATCH ONE; -Scopolamine 1.5 mg* PATCH TRANSDERM ONE; -ceFOXitin 2 GM IVPREMIX* 2 GM/50 ML BAG ONE
[2017-08-30] MEDS ORDERED: Famotidine IV* 10 MG/ML 2 ML (20 mg) ONE (07:49)
[2017-08-30] MEDS ORDERED: Dexamethasone IV* 4 MG/ML 1 ML (4 MG) ONE ×2 (07:49→07:50)
[2017-08-30] MEDS ORDERED: ceFAZolin 2 GM PREMIX (*) 2 GM/50 ML BAG IVPB ONE (07:50)
[2017-08-30] MEDS ORDERED: Rocuronium* 10 MG/ML VIAL ONE (08:14)
[2017-08-30] MEDS ORDERED: Midazolam* 1 MG/ML 2 ML VIAL (2 MG) ONE (08:14)
[2017-08-30] MEDS ORDERED: fentaNYL* 50 MCG/ML 2 ML VIAL (100 MCG VIAL) ONE ×2 (08:14→11:17)
[2017-08-30] MEDS ORDERED: Ondansetron INJ* 2 MG/ML VIAL ONE (08:19)
[2017-08-30] MEDS ORDERED: Sterile Water for Inj* 10 ML ONE (08:19)
[2017-08-30] MEDS ORDERED: Propofol* 10 MG/ML 20 ML BTL IV PUSH ONE (08:19)
[2017-08-30] MEDS ORDERED: Lidocaine 2% PF * 5 ML VIAL ONE (08:19)
[2017-08-30] MEDS ORDERED: Ketorolac INJ* 30 MG/ML 1 ML VIAL ONE (08:19)
[2017-08-30] MEDS ORDERED: Bacitracin IV* 50,000 UNITS INJ ONE (09:13)
[2017-08-30] MEDS ORDERED: Lidocain 1% EPI 1:100,000 * 30 ML MDV ONE (09:13)
[2017-08-30] MEDS ORDERED: Thrombin 5,000 UNITS* 1 APPLIC KIT - topical use - TOPICAL ONE (09:13)
[2017-08-30] MEDS ORDERED: oxyCODONE/Acetamin 5/325 MG* TAB PO PRN (09:14)
[2017-08-30] MEDS ORDERED: Ondansetron INJ* 2 MG/ML VIAL IV PRN ×2 (09:14→11:05)
[2017-08-30] MEDS ORDERED: PROCHLORPERAZINE INJ 5 MG/ML 2 ML VIAL IV PRN (09:14)
[2017-08-30] MEDS ORDERED: oxyCODONE TAB* 5 MG TAB PO PRN (09:14)
[2017-08-30] MEDS ORDERED: Naloxone* 0.4 MG/ML 1 ML VIAL IV PRN (09:14)
[2017-08-30] MEDS ORDERED: Acetaminophen IV 1GM/100ML * 1,000 MG/100 ML VIAL IVPB ONE (09:14)
[2017-08-30] MEDS ORDERED: Acetaminophen TAB* 325 MG PO PRN (11:05)
[2017-08-30] MEDS ORDERED: Magnesium Hydroxide LIQ* 30 ML UDC PO PRN (11:05)
[2017-08-30] MEDS ORDERED: HYDROmorphone INJ* 0.5 MG/0.5 ML SYRINGE ONE ×2 (11:17→11:53)
[2017-08-30] MEDS ORDERED: Acetaminophen IV 1GM/100ML * 100 ML ONE (11:17)
[2017-08-30] MEDS ORDERED: oxyCODONE TAB* 5 MG TAB ONE (11:17)
[2017-08-30] MEDS: HYDROmorphone INJ* 0.5 MG/0.5 ML SYRINGE IV PRN ×2 (11:21→11:54)
[2017-08-30] MEDS: fentaNYL* 50 MCG/ML 2 ML VIAL (100 MCG VIAL) IV PRN ×3 (11:32→12:10)
[2017-08-30] MEDS ORDERED: HYDROcodone/ACETAMIN 5-325 MG* 1 TAB ONE (13:02)
[2017-08-30] MEDS: HYDROcodone/ACETAMIN 5-325 MG* 1 TAB PO PRN ×2 (13:03→17:20)
--- NOTE | 2017-08-30 14:18 | RAD ---
INDICATION: Operative control films COMPARISON: CT lumbar spine August 18, 2017 TECHNIQUE: 2, portable crosstable lateral views are submitted . FINDINGS: Operative control films show retractors in place and a curved hemostat positioned at the L2-L3 level.
[2017-08-30] MEDS: Gabapentin CAP(*) 300 MG PO SCH ×2 (16:10→21:42)
[2017-08-30] MEDS ORDERED: Zolpidem TAB* 10 MG PO SCH (21:00)
[2017-08-30] MEDS ORDERED: Topiramate TAB(*) 100 MG PO SCH (21:00)
[2017-08-30] MEDS ORDERED: Diclofenac Sodium EC TAB* 25 MG PO PRN (21:03)
[2017-08-30] MEDS ORDERED: Misoprostol TAB* 200 MCG PO PRN (21:03)
[2017-08-31] MEDS: HYDROcodone/ACETAMIN 5-325 MG* 1 TAB PO PRN ×2 (03:46→07:55)
[2017-08-31] MEDS: Gabapentin CAP(*) 300 MG PO SCH (07:55)
--- NOTE | 2017-08-31 08:08 | PN ---
Progress Note - Progress Note Date of Service: 08/31/17 SOAP: Subjective: [S/p lumbar discectomy L2-3 on the right, POD #1. Complains of incisional soreness this morning. Did not sleep well last night. Lower extremity numbness/tingling persistent although she reports symptoms are improved since pre-op. Denies fever, chills, headache, nausea. Has been up and ambulating independently yesterday. Pain controlled with PO meds. ] Objective: [ Vital Signs: Temp Pulse Resp BP Pulse Ox 98.1 F 87 18 126/71 97 08/31/17 03:39 08/31/17 03:39 08/31/17 07:59 08/31/17 03:39 08/31/17 07:59 General: Alert and NAD. Neuro: Motor and sensory normal. Incision: Intact and without swelling, erythema, drainage. ] Assessment: [Satisfactory post-op.] Plan: [1. Discharge home today. 2. Discharge instructions discussed. ]
[2017-08-31 08:27] VITALS: BP 116/76
--- NOTE | 2017-08-31 12:53 | OP ---
DATE OF OPERATION: 08/30/17 - ROOM #340 DATE OF : 77 SURGEON: Anurag Aguillon MD PRINCIPAL BIOSTATISTICIAN: THELMA Munguia ANESTHESIA: General. PRE-OP DIAGNOSIS: Herniated nucleus pulposus, L2-L3 on the right. POST-OP DIAGNOSIS: Herniated nucleus pulposus, L2-L3 on the right. OPERATIVE PROCEDURE: Lumbar diskectomy L2-L3 on the right with excision of far lateral herniated nucleus pulposus L2-L3 on the right with microdissection. DESCRIPTION OF PROCEDURE: After satisfactory general anesthesia was obtained, the patient was placed on the operating room table in a prone position with the chest supported on the Murphy frame and the back slightly flexed. The lumbar region was then clipped, prepped, and draped in a sterile manner for a lumbar laminectomy and a skin incision outlined along the midline from L2-L3. This incision was infiltrated with 1% Xylocaine with epinephrine, after which it was turned down sharply to the level of the lumbar fascia. The fascia was divided along the spinous processes of L2 and L3 on the right side and the paraspinal musculature stripped away from these posterior elements using the periosteal elevator and monopolar cautery. An intraoperative x-ray was obtained verifying proper interspace localization, after which a partial hemilaminectomy was carried out by removing the inferior aspect of L2 and the medial aspect of the facet complex as well as the ligamentum flavum. This was carried superiorly until the attachment of ligamentum flavum was taken down. Ligamentum flavum was then removed. Additional superior exposure was obtained as preoperative imaging had suggested far lateral disk herniation. At this point in the procedure, the operating microscope was brought into the field and the remainder of the procedure was done under microscopic visualization. In addition, the superior and lateral exposure was obtained until the L2 nerve root could be identified. Utilizing microdissection, epidural venous structures were coagulated and divided. An opening was made in the posterior longitudinal ligament and the disk space was cleared of any loose disk material utilizing pituitary forceps and curettes. Multiple fragments were removed from out into the foraminal region. At the conclusion of the decompression, both the L2 and L3 nerve roots turned out to be free in their course. After showing adequate hemostasis, the wound was thoroughly irrigated, after which a piece of Gelfoam was placed over the laminectomy defect. The fascia was then reapproximated with 0 Vicryl suture. The subcutaneous tissues closed with 3-0 Vicryl suture and the skin closed with skin clips. The estimated blood loss was less than 50 cc and the final sponge, padding, and needle counts were correct. The patient was taken to the recovery room, extubated, and in stable condition. [id number]/[facility] #: [id number] MTDD
--- NOTE | 2017-09-22 21:32 | DS ---
DISCHARGE SUMMARY: DATE OF ADMISSION: 08/30/17 DATE OF DISCHARGE: 08/31/17 DISCHARGE DIAGNOSIS: Herniated nucleus pulposus, L2-3 on the right. SPECIAL PROCEDURES: Lumbar diskectomy, L2-3 on the right. HOSPITAL COURSE: This 42-year-old female was seen in the office with right-sided lumbar radiculopath y. MRI was obtained showing a herniated disk at L2-3 on the right, which was consistent with the pat ient's symptoms and physical exam findings. She did not improve with conservative treatments includin g medications and rest. She therefore elected for surgical intervention. On the day of admission, barber shankar was taken to surgery where under general anesthesia, a lumbar diskectomy at L2-3 on the right opera tion was carried out. Postoperatively, the right lower extremity pain was improved. She had persist ent numbness, tingling, and weakness in the right lower extremity. Pain is well controlled with oral pain medications. She is eating, drinking, and voiding without difficulty. She is ambulating with some assistance. On the first postoperative day, she was discharged home to the care of her family. DISCHARGE INSTRUCTIONS: Include wound care and activity level were discussed with the patient and in formation on this was provided. She will follow up in the office in approximately 10 days. DISCHARGE MEDICATIONS: Voss 5/325 mg 1 to 2 tabs by mouth every 4 hours as needed for pain. THELMA RAMON [id number] #: [id number]
== END 2017-08-31 09:35 | disposition home or self-care (01) ==
LOC: OR 07:48 → SSU 11:05
PROVIDERS: ADMIT Neurological Surgery; ATTEND Neurological Surgery
PROC: 0SB20ZZ Excision of Lumbar Vertebral Disc, Open Approach (ICD-10-PCS; 2017-08-30)
PROC: 01NB0ZZ Release Lumbar Nerve, Open Approach (ICD-10-PCS; principal; 2017-08-30 09:15)
DX: M51.26 Other intervertebral disc displacement, lumbar region (principal); Z90.710 Acquired absence of both cervix and uterus
CPT/HCPCS: 72100; 88304; A9270-GY; G0378; J0690; J1100; J1170; J1885; J2250; J2405; J2704; J3010